=== PATIENT | female | born 1970 | race African-American/Black ===

== ENCOUNTER → 2018-09-06 | Outpatient (CLI) | payer OTHER ==
[~2018-09-06] MED LIST: ACET-2222 PO; HCT25T PO; LUBI24CA7 PO; MNTL10T PO; MTF500T PO; NAPR-243 PO; NFR150C PO; OLME1TAB19 PO
--- NOTE | 2018-09-06 13:14 | Diagnostic Imaging Report ---
INDICATION: Chronic kidney disease. FINDINGS: The left kidney is surgically absent. The right kidney measures 12.4 x 4.6 x 6.5 cm. Cortical thickness and echogenicity appears to be normal. No calculi are seen. No hydronephrosis is identified. Urinary bladder is unremarkable. Right ureteral jet is visualized. IMPRESSION: Surgically absent left kidney. The right kidney is unremarkable. Dictated by: Dictated on workstation # [id number]
== END ==
LOC: RAD 11:56
PROVIDERS: ATTEND Internal Medicine Nephrology
DX: I12.9 Hypertensive chronic kidney disease with stage 1 through stage 4 chronic kidney disease, or unspecified chronic kidney disease (principal); N18.3 Chronic kidney disease, stage 3 (moderate); R60.0 Localized edema; Z90.5 Acquired absence of kidney
CPT/HCPCS: 76775

== ENCOUNTER → 2020-07-02 | Outpatient (CLI) | payer OTHER ==
--- NOTE | 2020-07-02 10:50 | Diagnostic Imaging Report ---
INDICATION: Routine screening. COMPARISON: 12/12/2015. TECHNIQUE: 2D and 3D bilateral screening mammography was performed with CAD. FINDINGS: Scattered fibroglandular densities are identified bilaterally. The right breast appears stable. A density has developed in the upper and outer aspect of the left breast. Additional views are recommended. There are benign appearing nodules in the left breast, consistent with intraparenchymal lymph nodes. The axillae are unremarkable. IMPRESSION: Developing density in the upper outer left breast at posterior depth. Further evaluation with additional views is recommended. ACR BI-RADS Category 0: Incomplete. (Needs additional imaging evaluation). Result letter will be mailed to the patient. Note: At least 10% of breast cancer is not imaged by mammography. Dictated by: Dictated on workstation # [id number]
== END ==
LOC: RAD 07:45
PROVIDERS: ATTEND Nurse Practitioner Family
DX: Z12.31 Encounter for screening mammogram for malignant neoplasm of breast (principal); N63.21 Unspecified lump in the left breast, upper outer quadrant
CPT/HCPCS: 77063; 77067

== ENCOUNTER → 2020-07-23 | Outpatient (CLI) | payer OTHER ==
--- NOTE | 2020-07-23 09:17 | Diagnostic Imaging Report ---
INDICATION: Abnormal screening mammogram. COMPARISON: 12/12/2015. TECHNIQUE: Digital diagnostic mammography was performed of the left breast with a Computer Aided Detection (CAD) system. FINDINGS: There is a persistent focal area of increased parenchymal density in the far upper outer aspect of the left breast. Ultrasound was performed which demonstrated a focal echogenic area just beneath the skin. This is likely related to the dermis. There was no posterior acoustic shadowing or internal blood flow. IMPRESSION: Probably benign findings. Recommend a 3 month followup ultrasound to ensure stability. ACR BI-RADS Category 3: Probably benign findings. Result letter will be mailed to the patient. Note: At least 10% of breast cancer is not imaged by mammography. Dictated by: Dictated on workstation # [id number]
--- NOTE | 2020-07-23 09:32 | Diagnostic Imaging Report ---
Indication: Abnormal mammogram. Technique: Multiple real-time grayscale images were obtained over the left breast various projections. Findings: In the 2 o'clock position of the left breast just beneath the skin there is a generally hyperechoic area with slight increased blood flow measuring 2.2 x 1.1 x 1.8 cm. There are no other discrete solid or cystic masses. IMPRESSION: Category 3 probably benign Hypoechoic area just beneath the dermis with some increased blood flow. This is thought to likely be related to the skin possibly infectious. Recommend clinical correlation and 3 month follow-up ultrasound to ensure stability Dictated by: Dictated on workstation # [id number]
== END ==
LOC: RAD 08:15
PROVIDERS: ATTEND Nurse Practitioner Family
DX: R92.2 Inconclusive mammogram (principal)
CPT/HCPCS: 76641; 77065; G0279

== ENCOUNTER → 2020-10-24 | Outpatient (CLI) | payer OTHER ==
--- NOTE | 2020-10-24 10:06 | Diagnostic Imaging Report ---
INDICATION: Followup left breast abnormality. Correlation is made with prior left breast ultrasound from 07/23/2020. Sonographic interrogation left breast 2 o'clock location demonstrates an area of mixed echogenicity just below the skin surface but primarily hyperechoic. This area measures 1.8 x 0.8 x 1.5 cm. This has decreased in size compared with prior measurement of 2.2 x 1.1 x 1.8 cm. This may represent an area of prior injury and hematoma. Patient reportedly did have a left breast injury. No other abnormalities are seen. No abnormal vascularity is present. IMPRESSION: Slight decrease in size of the area of increased echogenicity at the 2 o'clock location left breast when compared with the study from 3 months earlier. This is reassuring. Additional 3 month followup with ultrasound is recommended to show continued improvement. Dictated by: Dictated on workstation # [id number]
== END ==
LOC: RAD 09:10
PROVIDERS: ATTEND Family Medicine
DX: R92.8 Other abnormal and inconclusive findings on diagnostic imaging of breast (principal)
CPT/HCPCS: 76642